=== PATIENT | male | born 1980 | race Caucasian/White ===

== ENCOUNTER 2021-02-04 11:02 | Emergency (ER) | payer OTHER ==
[~2021-02-04] VITALS: Ht 177.8 cm; Wt 249.5 kg
[2021-02-04] MEDS ORDERED: METFORMIN HCL500 M3 PO ×2 (16:11)
== END 2021-02-04 16:40 ==
LOC: ER 11:02
DX: R10.2 Pelvic and perineal pain (principal); R73.9 Hyperglycemia, unspecified

== ENCOUNTER 2021-08-30 05:41 | Emergency (ER) | payer OTHER ==
[~2021-08-30] VITALS: Ht 180.3 cm; Wt 249.5 kg
[~2021-08-30 05:41] MED LIST: METFORMIN HCL500 M3 PO
== END 2021-08-30 11:26 | disposition home or self-care (01) ==
LOC: ER 05:41
DX: R07.81 Pleurodynia (principal); M54.9 Dorsalgia, unspecified; R10.11 Right upper quadrant pain; E66.01 Morbid (severe) obesity due to excess calories; J45.909 Unspecified asthma, uncomplicated

== ENCOUNTER 2022-04-08 05:47 | Emergency (ER) | payer OTHER ==
[~2022-04-08] VITALS: Ht 180.3 cm; Wt 240.4 kg
[2022-04-08] MEDS ORDERED: METFORMIN HCL500 M3 (05:54)
== END 2022-04-08 09:55 | disposition home or self-care (01) ==
LOC: ER 05:47
DX: R05.9 Cough, unspecified (principal); E11.9 Type 2 diabetes mellitus without complications; Z79.84 Long term (current) use of oral hypoglycemic drugs

== ENCOUNTER 2023-06-15 16:19 | Emergency (ER) | payer OTHER ==
[~2023-06-15] VITALS: Ht 177.8 cm; Wt 210.0 kg
[~2023-06-15 16:19] MED LIST changes: +METFORMIN HCL500 M3
[2023-06-15] MEDS ORDERED: KETOROLAC TROMETHAMINE 30 MG VIAL IM STA (19:08)
[2023-06-15] MEDS ORDERED: DICLOFENAC POTA50 MG PO (21:43)
== END 2023-06-15 22:03 | disposition home or self-care (01) ==
LOC: ER 16:20
DX: S66.911A Strain of unspecified muscle, fascia and tendon at wrist and hand level, right hand, initial encounter (principal); W01.0XXA Fall on same level from slipping, tripping and stumbling without subsequent striking against object, initial encounter; Y93.89 Activity, other specified; Y92.89 Other specified places as the place of occurrence of the external cause
CPT/HCPCS: 73100; 96372; 99283; J1885